=== PATIENT | female | born 1950 | race Caucasian/White ===

== ENCOUNTER 2016-11-01 17:45 | Emergency (ER) | payer BC, MEDICARE ==
[2016-11-01 17:58] VITALS: BP 197/82
--- NOTE | 2016-11-01 18:14 | EDM.PDOC ---
ED HPI GENERAL MEDICAL PROBLEM - General Chief Complaint: Eye Problems Stated Complaint: EYE PAIN Time Seen by Provider: 11/01/16 17:45 Source of Information: Reports: Patient History Limitations: Reports: No Limitations - History of Present Illness INITIAL COMMENTS - FREE TEXT/NARRATIVE: 65 YO WF presents to ER complaining of left eye irritation and redness which began today. Pt denies any eye injury. Pt denies associated matting or discharge from eye. Pt denies any tenderness to the eyelid or visual changes. Onset: Today Duration: Day(s): (1) Quality: Reports: Ache Severity: Mild Improves with: Reports: None Worsens with: Reports: None Associated Symptoms: Reports: No Other Symptoms - Related Data Allergies Allergy/AdvReac Type Severity Reaction Status Date / Time albuterol Allergy Chest Verified 12/01/15 13:27 Tightness amoxicillin [From Augmentin] Allergy Diarrhea Verified 12/01/15 13:27 clarithromycin [From Biaxin] Allergy Diarrhea Verified 12/01/15 13:27 clavulanic acid Allergy Diarrhea Verified 12/01/15 13:27 [From Augmentin] codeine Allergy Hives Verified 12/01/15 13:27 gluten Allergy Abdominal Verified 12/01/15 13:27 Pain levofloxacin [From Levaquin] Allergy Diarrhea Verified 12/01/15 13:27 lincomycin [From Lincocin] Allergy Diarrhea Verified 12/01/15 13:27 nitrofurantoin Allergy Diarrhea Verified 12/01/15 13:27 [From Macrobid] prednisone Allergy Anxiety Verified 11/01/16 17:53 pseudoephedrine Allergy Dizziness Verified 12/01/15 13:27 [From Sudafed] rofecoxib [From Vioxx] Allergy Diarrhea Verified 12/01/15 13:27 sulfamethoxazole Allergy Diarrhea Verified 12/01/15 13:27 [From Bactrim] trimethoprim [From Bactrim] Allergy Diarrhea Verified 12/01/15 13:27 Home Meds: Home Meds Aspirin [Ecotrin] 12/01/15 [History] Atenolol [Tenormin] 12/01/15 [History] Azithromycin [Zithromax] 250 mg PO DAILY #4 tablet MDD 1 12/01/15 [Rx] Benzonatate 12/01/15 [History] Otis Cit/Mag/D3/Zn/Lens Dotter/Zhao/Bor [Citracal-Vit D + Magnesium] 12/01/15 [History] Cetirizine [ZyrTEC] 12/01/15 [History] ClonazePAM [KlonoPIN] 12/01/15 [History] Clotrimazole [Mycelex] 12/01/15 [History] Clotrimazole/Betamethasone Dip [Lotrisone Cream] 12/01/15 [History] Cranberry Extract [Cranberry] 12/01/15 [History] Diclofenac Sodium [Voltaren] 12/01/15 [History] Fluorometholone 12/01/15 [History] Fluticasone Propionate [Flonase] 12/01/15 [History] Gentamicin [Garamycin 0.3% Ophth Soln] 12/01/15 [History] Levalbuterol HCl [Xopenex] 12/01/15 [History] Levalbuterol Tartrate [Xopenex Hfa] 12/01/15 [History] Light Mineral Oil/Min Oil/Pf [Retaine Mgd Eye Drops] 12/01/15 [History] Loteprednol Etabonate [Lotemax] 12/01/15 [History] Metaxalone [Skelaxin] 12/01/15 [History] Mirtazapine [Remeron] 12/01/15 [History] Misoprostol [Cytotec] 12/01/15 [History] Mometasone/Formoterol [Dulera 100-5 MCG] 12/01/15 [History] Montelukast [Singulair] 12/01/15 [History] Multivitamin [Multivitamins] 12/01/15 [History] Nystatin [Nystop] 12/01/15 [History] Nystatin/Triamcinolone Crm [Mycolog Crm] 12/01/15 [History] Omeprazole 12/01/15 [History] PARoxetine HCl [Paxil] 12/01/15 [History] PARoxetine HCl [Paxil] 12/01/15 [History] Phenytoin Sodium Extended [Dilantin] 12/01/15 [History] Ranitidine HCl [Zantac] 12/01/15 [History] Triamcinolone Acetonide [Kenalog] 12/01/15 [History] Vitamin E 12/01/15 [History] cycloSPORINE [Restasis] 12/01/15 [History] Past Medical History Respiratory History: Reports: Asthma, Bronchitis, Recurrent, COPD Gastrointestinal History: Reports: GERD Social & Family History - Tobacco Use Smoking Status *Q: Never Smoker Second Hand Smoke Exposure: No - Caffeine Use Caffeine Use: Reports: Coffee - Recreational Drug Use Recreational Drug Use: No ED ROS GENERAL - Review of Systems Review Of Systems: See Below Constitutional: Reports: No Symptoms HEENT: Reports: Eye Pain Respiratory: Reports: No Symptoms Cardiovascular: Reports: No Symptoms Endocrine: Reports: No Symptoms GI/Abdominal: Reports: No Symptoms : Reports: No Symptoms Musculoskeletal: Reports: No Symptoms Skin: Reports: No Symptoms Neurological: Reports: No Symptoms Psychiatric: Reports: No Symptoms Hematologic/Lymphatic: Reports: No Symptoms Immunologic: Reports: No Symptoms ED EXAM GENERAL W FULL EYE - Physical Exam Exam: See Below Exam Limited By: No Limitations General Appearance: Alert, WD/WN, No Apparent Distress Eye Exam: Right Eye: Normal Inspection, Left Eye: Conjunctival Injection, Bilateral Eye: EOMI, PERRL Eyelids: Bilateral: Normal Appearance Conjunctiva & Sclera: Left: Injected Cornea Exam: Bilateral: Normal Appearance Extraocular Movements: Bilateral: Intact Pupils: Normal Accommodation Head: Atraumatic, Normocephalic Neck: Normal Inspection, Supple, Non-Tender, Full Range of Motion Respiratory/Chest: No Respiratory Distress, Lungs Clear, Normal Breath Sounds, No Accessory Muscle Use, Chest Non-Tender Cardiovascular: Normal Peripheral Pulses, Regular Rate, Rhythm, No Edema, No Gallop, No JVD, No Murmur, No Rub GI/Abdominal: Normal Bowel Sounds, Soft, Non-Tender, No Organomegaly, No Distention, No Abnormal Bruit, No Mass Back Exam: Normal Inspection, Full Range of Motion, NT Extremities: Normal Inspection, Normal Range of Motion, Non-Tender, Normal Capillary Refill, No Pedal Edema Neurological: Alert, Oriented, CN II-XII Intact, Normal Cognition, Normal Gait, Normal Reflexes, No Motor/Sensory Deficits Psychiatric: Normal Affect, Normal Mood Skin Exam: Warm, Dry, Intact, Normal Color, No Rash Lymphatic: No Adenopathy Course - Vital Signs Last Recorded V/S: Last Vital Signs Temp 36.2 C 11/01/16 17:55 Pulse 70 11/01/16 17:55 Resp 22 H 09/24/17 17:55 BP 197/82 H 11/01/16 17:55 Pulse Ox 98 11/01/16 17:55 Departure - Departure Time of Disposition: 18:15 Disposition: Home, Self-Care 01 Condition: Good Clinical Impression: Conjunctivitis Qualifiers: Conjunctivitis type: acute Acute conjunctivitis type: unspecified Laterality: left Qualified Code(s): H10.32 - Unspecified acute conjunctivitis, left eye - Discharge Information Instructions: Bacterial Conjunctivitis, [id number] Referrals: Maryse Cruz PA-C [Primary Care Provider] - Forms: ED Department Discharge - Assessment/Plan Assessment:: 1. left conjunctivitis Plan: 1. discharge home 2. ciloxin opth 3 gtt Q4 x 7 days 3. follow up with opthal for further management
[2016-11-01] MEDS ORDERED: Ciprofloxacin 0.3% Ophth Soln 2.5 ML Bottle EYELF SCH (18:15)
[2016-11-01] MEDS ORDERED: Tobramycin 0.3% Ophth Drops 5 ML Bottle ONE (18:24)
[2016-11-01] MEDS ORDERED: Tobramycin 0.3% Ophth Drops 5 ML Bottle EYELF SCH (21:00)
== END 2016-11-01 18:40 | disposition home or self-care (01) ==
LOC: KA.ED 17:45
DX: H10.32 Unspecified acute conjunctivitis, left eye (principal); J45.909 Unspecified asthma, uncomplicated; K21.9 Gastro-esophageal reflux disease without esophagitis; Z88.1 Allergy status to other antibiotic agents; Z88.5 Allergy status to narcotic agent; Z79.82 Long term (current) use of aspirin; Z88.8 Allergy status to other drugs, medicaments and biological substances; Z79.899 Other long term (current) drug therapy
CPT/HCPCS: 99282; A9270

== ENCOUNTER 2017-04-18 11:31 | Emergency (ER) | payer MEDICARE, OTHER ==
[2017-04-18 12:15] VITALS: BP 134/57
[2017-04-18] MEDS ORDERED: Erythromycin Base 0.5% Ophth Oint 1 GM Tube EYELF ONE (12:19)
--- NOTE | 2017-04-18 12:23 | EDM.PDOC ---
ED HPI GENERAL MEDICAL PROBLEM - General Chief Complaint: Eye Problems Stated Complaint: LEFT EYE IRRITATION Time Seen by Provider: 04/18/17 12:18 Source of Information: Reports: Patient History Limitations: Reports: No Limitations - History of Present Illness INITIAL COMMENTS - FREE TEXT/NARRATIVE: Patient is a 66-year-old female who presents to the emergency department this afternoon with a complaint of left eye irritation. Symptoms began 3 days ago. Patient states that she has a history of ingrown eyelashes and has been taken out by the advertising strategist. She is currently on Restasis for dry eyes. Patient denies trauma, fever, headache, droopy eyelid, vision changes, discharge from eye, or upper respiratory like symptoms. Onset: Gradual Onset Date: 04/16/17 Duration: Day(s): Location: Reports: Other (Left eye) Quality: Reports: Burning Severity: Mild Improves with: Reports: None Worsens with: Reports: Other (Blinking) Context: Reports: Trauma Associated Symptoms: Reports: No Other Symptoms Left Eye Pain Score (Numeric/FACES): 5 - Related Data Allergies Allergy/AdvReac Type Severity Reaction Status Date / Time albuterol Allergy Chest Verified 04/18/17 11:43 Tightness amoxicillin [From Augmentin] Allergy Diarrhea Verified 04/18/17 11:43 clarithromycin [From Biaxin] Allergy Diarrhea Verified 04/18/17 11:43 clavulanic acid Allergy Diarrhea Verified 04/18/17 11:43 [From Augmentin] codeine Allergy Hives Verified 04/18/17 11:43 gluten Allergy Abdominal Verified 04/18/17 11:43 Pain levofloxacin [From Levaquin] Allergy Diarrhea Verified 04/18/17 11:43 lincomycin [From Lincocin] Allergy Diarrhea Verified 04/18/17 11:43 nitrofurantoin Allergy Diarrhea Verified 04/18/17 11:43 [From Macrobid] prednisone Allergy Anxiety Verified 04/18/17 11:43 pseudoephedrine Allergy Dizziness Verified 04/18/17 11:43 [From Sudafed] rofecoxib [From Vioxx] Allergy Diarrhea Verified 04/18/17 11:43 sulfamethoxazole Allergy Diarrhea Verified 04/18/17 11:43 [From Bactrim] trimethoprim [From Bactrim] Allergy Diarrhea Verified 04/18/17 11:43 Home Meds: Home Meds Aspirin [Ecotrin] 12/01/15 [History] Atenolol [Tenormin] 12/01/15 [History] Azithromycin [Zithromax] 250 mg PO DAILY #4 tablet MDD 1 12/01/15 [Rx] Benzonatate 12/01/15 [History] Otis Cit/Mag/D3/Zn/Cosmetic Manager/Zhao/Bor [Citracal-Vit D + Magnesium] 12/01/15 [History] Cetirizine [ZyrTEC] 12/01/15 [History] ClonazePAM [KlonoPIN] 12/01/15 [History] Clotrimazole [Mycelex] 12/01/15 [History] Clotrimazole/Betamethasone Dip [Lotrisone Cream] 12/01/15 [History] Cranberry Extract [Cranberry] 12/01/15 [History] Diclofenac Sodium [Voltaren] 12/01/15 [History] Fluorometholone 12/01/15 [History] Fluticasone Propionate [Flonase] 12/01/15 [History] Gentamicin [Garamycin 0.3% Ophth Soln] 12/01/15 [History] Levalbuterol HCl [Xopenex] 12/01/15 [History] Levalbuterol Tartrate [Xopenex Hfa] 12/01/15 [History] Light Mineral Oil/Min Oil/Pf [Retaine Mgd Eye Drops] 12/01/15 [History] Loteprednol Etabonate [Lotemax] 12/01/15 [History] Metaxalone [Skelaxin] 12/01/15 [History] Mirtazapine [Remeron] 12/01/15 [History] Misoprostol [Cytotec] 12/01/15 [History] Mometasone/Formoterol [Dulera 100-5 MCG] 12/01/15 [History] Montelukast [Singulair] 12/01/15 [History] Multivitamin [Multivitamins] 12/01/15 [History] Nystatin [Nystop] 12/01/15 [History] Nystatin/Triamcinolone Crm [Mycolog Crm] 12/01/15 [History] Omeprazole 12/01/15 [History] PARoxetine HCl [Paxil] 12/01/15 [History] PARoxetine HCl [Paxil] 12/01/15 [History] Phenytoin Sodium Extended [Dilantin] 12/01/15 [History] Ranitidine HCl [Zantac] 12/01/15 [History] Triamcinolone Acetonide [Kenalog] 12/01/15 [History] Vitamin E 12/01/15 [History] cycloSPORINE [Restasis] 12/01/15 [History] Past Medical History HEENT History: Reports: Other (See Below) Other HEENT History: ingrown eyelashes Respiratory History: Reports: Asthma, Bronchitis, Recurrent, COPD Gastrointestinal History: Reports: GERD Social & Family History - Tobacco Use Smoking Status *Q: Never Smoker Second Hand Smoke Exposure: No - Caffeine Use Caffeine Use: Reports: Coffee - Recreational Drug Use Recreational Drug Use: No ED ROS GENERAL - Review of Systems Review Of Systems: ROS reveals no pertinent complaints other than HPI. Constitutional: Reports: No Symptoms HEENT: Reports: Eye Pain Respiratory: Reports: No Symptoms Cardiovascular: Reports: No Symptoms Endocrine: Reports: No Symptoms GI/Abdominal: Reports: No Symptoms : Reports: No Symptoms Musculoskeletal: Reports: No Symptoms Skin: Reports: No Symptoms Neurological: Reports: No Symptoms Psychiatric: Reports: No Symptoms Hematologic/Lymphatic: Reports: No Symptoms Immunologic: Reports: No Symptoms ED EXAM GENERAL W FULL EYE - Physical Exam Exam: See Below Exam Limited By: No Limitations General Appearance: Alert, WD/WN, No Apparent Distress Eye Exam: Left Eye: Other (Sty medial aspect) Eyelids: Bilateral: Normal Appearance Conjunctiva & Sclera: Bilateral: Normal Appearance Extraocular Movements: Bilateral: Intact Nose: Normal Inspection Throat/Mouth: Normal Inspection, Normal Oropharynx, No Airway Compromise Head: Atraumatic, Normocephalic Neck: Normal Inspection. No: Lymphadenopathy (L), Lymphadenopathy (R) Respiratory/Chest: No Respiratory Distress Neurological: Alert, Oriented, Normal Cognition Psychiatric: Normal Affect, Normal Mood Skin Exam: Warm, Dry, Intact, Normal Color, No Rash Lymphatic: No Adenopathy Course - Vital Signs Last Recorded V/S: Last Vital Signs Temp 97.2 F 04/18/17 12:08 Pulse 65 04/18/17 12:08 Resp 18 04/18/17 12:08 BP 134/57 L 04/18/17 12:08 Pulse Ox 95 04/18/17 12:08 - Re-Assessments/Exams Free Text/Narrative Re-Assessment/Exam: 04/18/17 12:25 Patient afebrile, nontoxic appearing, vital signs stable. Ophthalmic ointment was applied to left eye. Patient will follow-up with ophthalmology in one to 2 days. Departure - Departure Time of Disposition: 12:26 Disposition: Home, Self-Care 01 Condition: Good Clinical Impression: Sty, external Qualifiers: Laterality: left Eyelid: lower Qualified Code(s): H00.015 - Hordeolum externum left lower eyelid - Discharge Information Instructions: Stye Referrals: Maryse Cruz PA-C [Primary Care Provider] - Additional Instructions: Follow-up with ophthalmology in one to 2 days. Return to emergency department sooner if symptoms continue or worsen. - Assessment/Plan Assessment:: Left eye sty Plan: Follow-up with ophthalmology
== END 2017-04-18 12:45 | disposition home or self-care (01) ==
LOC: KA.ED 11:31
DX: H00.015 Hordeolum externum left lower eyelid (principal); J44.9 Chronic obstructive pulmonary disease, unspecified; K21.9 Gastro-esophageal reflux disease without esophagitis; Z79.2 Long term (current) use of antibiotics; Z88.1 Allergy status to other antibiotic agents; Z88.2 Allergy status to sulfonamides; Z88.5 Allergy status to narcotic agent; Z88.8 Allergy status to other drugs, medicaments and biological substances; Z91.018 Allergy to other foods
CPT/HCPCS: 99282; 99283

== ENCOUNTER 2021-10-12 09:10 | Emergency (ER) | payer MEDICARE, OTHER ==
[2021-10-12 10:44] VITALS: BP 129/67; PULSE 66
== END 2021-10-12 10:57 | disposition home or self-care (01) ==
LOC: KA.ED 09:10
DX: M79.602 Pain in left arm (principal); K21.9 Gastro-esophageal reflux disease without esophagitis; J44.9 Chronic obstructive pulmonary disease, unspecified; Z88.0 Allergy status to penicillin; Z88.1 Allergy status to other antibiotic agents; Z88.8 Allergy status to other drugs, medicaments and biological substances; Z88.5 Allergy status to narcotic agent; Z91.018 Allergy to other foods; Z79.82 Long term (current) use of aspirin; Z79.899 Other long term (current) drug therapy
CPT/HCPCS: 73030-LT; 73070-LT; 73100-LT; 99283

== ENCOUNTER 2022-12-09 17:05 | Inpatient (IN) | payer MEDICARE, BC ==
[2022-12-09 17:39] LABS: BASOPHILS ABSOLUTE AUTO 0.02 10^3/uL (0.00-0.10); BASOPHILS PERCENT AUTO 0.2 % (0.0-1.0); HEMATOCRIT 34.8 % (37.0-47.0); HEMOGLOBIN 11.2 g/dL (12.0-16.0); IMMATURE GRAN ABSOLUTE AUTO 0.01 10^3/uL (0.00-0.50); IMMATURE GRAN PERCENT AUTO 0.1 % (0.0-5.0); LYMPHOCYTES ABSOLUTE AUTO 1.16 10^3/uL (1.00-4.00); MEAN CORPUSCULAR HEMOGLOBIN 33.3 pg (27.0-31.0); MEAN CORPUSCULAR HGB CONC 32.2 g/dL (32.0-36.0); MEAN CORPUSCULAR VOLUME 103.6 fL (82.0-92.0); MEAN PLATELET VOLUME 9.9 fL (7.4-10.4); MONOCYTES ABSOLUTE AUTO 1.39 10^3/uL (0.10-0.80); MONOCYTES PERCENT AUTO 13.1 % (2.0-8.0); NEUTROPHILS PERCENT AUTO 75.6 % (50.0-70.0); PLATELET COUNT,PLT 313 10^3/uL (150-400); RED BLOOD CELL COUNT 3.36 10^6/uL (3.80-5.50); RED CELL DISTRIBUTION WIDTH 13.5 % (11.5-14.5); WHITE BLOOD CELL COUNT,WBC 10.58 10^3/uL (5.00-10.00)
[2022-12-09 17:50] LABS: INR 1.1 (0.9-1.1)
[2022-12-09 17:53] LABS: ALBUMIN 2.97 g/dL (3.40-5.00); ANION GAP 13.2 mmol/L (5-15); BILIRUBIN TOTAL 0.4 mg/dL (0.2-1.0); CALCIUM 9.1 mg/dL (8.7-10.3); CARBON DIOXIDE,CO2 27.5 mmol/L (21.0-32.0); CREATININE 1.03 mg/dL (0.51-1.17); EST CRCL DRUG DOSING (CG) 37.9 mL/min; POTASSIUM,K 4.7 mmol/L (3.5-5.1); PROTEIN TOTAL,TP 8.4 g/dL (6.4-8.2)
[2022-12-09] MEDS ORDERED: Levalbuterol HCl 1.25 MG/3 ML Neb NEB ONE (18:19)
[2022-12-09] MEDS ORDERED: Acetaminophen 500 MG Tab PO ONE (18:21)
[2022-12-09] MEDS ORDERED: Sodium Chloride 0.9% 1,000 ML IV ONE (18:45)
[2022-12-09] MEDS ORDERED: Ondansetron 4 MG/2 ML SDV IV PRN (21:20)
[2022-12-09] MEDS ORDERED: Ondansetron 4 MG Tab.DIS PO PRN (21:20)
[2022-12-09 21:54] LABS: MAGNESIUM 2.1 mg/dL (1.8-2.4); TSH ULTRASENSITIVE 2.612 uIU/mL (0.340-4.820)
[2022-12-09] MEDS ORDERED: Metoprolol Tartrate 25 MG Tab PO ONE (22:43)
[2022-12-10] MEDS ORDERED: Menthol Lozenge PO PRN (03:36)
[2022-12-10] MEDS: Acetaminophen 325 MG Tab PO PRN ×2 (03:57→20:24)
[2022-12-10] MEDS: Omeprazole 20 MG Cap.CR PO SCH ×2 (06:24→06:33)
[2022-12-10 09:00] LABS: BASOPHILS ABSOLUTE AUTO 0.03 10^3/uL (0.00-0.10); BASOPHILS PERCENT AUTO 0.3 % (0.0-1.0); HEMATOCRIT 31.9 % (37.0-47.0); HEMOGLOBIN 10.4 g/dL (12.0-16.0); IMMATURE GRAN ABSOLUTE AUTO 0.01 10^3/uL (0.00-0.50); IMMATURE GRAN PERCENT AUTO 0.1 % (0.0-5.0); LYMPHOCYTES ABSOLUTE AUTO 1.04 10^3/uL (1.00-4.00); LYMPHOCYTES PERCENT AUTO 11.8 % (20.0-40.0); MEAN CORPUSCULAR HEMOGLOBIN 33.3 pg (27.0-31.0); MEAN CORPUSCULAR HGB CONC 32.6 g/dL (32.0-36.0); MEAN CORPUSCULAR VOLUME 102.2 fL (82.0-92.0); MEAN PLATELET VOLUME 10.3 fL (7.4-10.4); MONOCYTES ABSOLUTE AUTO 1.11 10^3/uL (0.10-0.80); MONOCYTES PERCENT AUTO 12.6 % (2.0-8.0); NEUTROPHILS ABSOLUTE AUTO 6.63 10^3/uL (2.50-7.00); NEUTROPHILS PERCENT AUTO 75.2 % (50.0-70.0); PLATELET COUNT,PLT 301 10^3/uL (150-400); RED BLOOD CELL COUNT 3.12 10^6/uL (3.80-5.50); RED CELL DISTRIBUTION WIDTH 13.6 % (11.5-14.5); WHITE BLOOD CELL COUNT,WBC 8.82 10^3/uL (5.00-10.00)
[2022-12-10] MEDS ORDERED: Metoprolol Tartrate 25 MG Tab PO SCH (09:00)
[2022-12-10] MEDS: Rosuvastatin 10 MG Tab PO SCH (09:12)
[2022-12-10] MEDS: PARoxetine 20 MG Tab PO SCH (09:12)
[2022-12-10] MEDS: Phenytoin 100 MG Cap.ER PO SCH ×2 (09:12→20:23)
[2022-12-10] MEDS: Apixaban 5 MG Tab PO SCH ×2 (09:12→20:23)
[2022-12-10 09:21] LABS: HEMOGLOBIN A1C 5.4 % (4.3-5.7)
[2022-12-10] MEDS: Folic Acid 1 MG Tab PO SCH (09:53)
[2022-12-10] MEDS: ClonazePAM 0.5 MG Tab PO SCH ×3 (12:16→23:10)
[2022-12-10] MEDS: Multivitamins with Minerals/Iron/Folic Acid/Lycopene Tab PO SCH (12:16)
[2022-12-10] MEDS ORDERED: Sodium Chloride 0.9% 100 ML IV SCH (14:00)
[2022-12-10] MEDS: Iopamidol 755 Mg/ML 100 ML Bottle IV ONE ×2 (14:30→15:40)
[2022-12-10] MEDS: LIDOCAINE TOP PRN (14:46)
[2022-12-10] MEDS: ASPERCREME TOP PRN (14:46)
[2022-12-10] MEDS: Gabapentin 100 MG Cap PO SCH ×2 (14:51→20:23)
[2022-12-10] MEDS: Metoprolol Tartrate 50 MG Tab PO SCH ×2 (15:14→20:25)
[2022-12-10] MEDS: traZODone 50 MG Tab PO PRN (20:23)
[2022-12-11] MEDS: Omeprazole 20 MG Cap.CR PO SCH ×2 (06:08→07:06)
[2022-12-11 08:20] LABS: BASOPHILS ABSOLUTE AUTO 0.02 10^3/uL (0.00-0.10); BASOPHILS PERCENT AUTO 0.2 % (0.0-1.0); HEMOGLOBIN 10.4 g/dL (12.0-16.0); IMMATURE GRAN ABSOLUTE AUTO 0.02 10^3/uL (0.00-0.50); IMMATURE GRAN PERCENT AUTO 0.2 % (0.0-5.0); LYMPHOCYTES ABSOLUTE AUTO 0.82 10^3/uL (1.00-4.00); LYMPHOCYTES PERCENT AUTO 7.6 % (20.0-40.0); MEAN CORPUSCULAR HEMOGLOBIN 32.7 pg (27.0-31.0); MEAN CORPUSCULAR HGB CONC 32.5 g/dL (32.0-36.0); MEAN CORPUSCULAR VOLUME 100.6 fL (82.0-92.0); MEAN PLATELET VOLUME 9.1 fL (7.4-10.4); MONOCYTES PERCENT AUTO 14.8 % (2.0-8.0); NEUTROPHILS ABSOLUTE AUTO 8.32 10^3/uL (2.50-7.00); NEUTROPHILS PERCENT AUTO 77.2 % (50.0-70.0); PLATELET COUNT,PLT 291 10^3/uL (150-400); RED BLOOD CELL COUNT 3.18 10^6/uL (3.80-5.50); RED CELL DISTRIBUTION WIDTH 13.6 % (11.5-14.5); WHITE BLOOD CELL COUNT,WBC 10.78 10^3/uL (5.00-10.00)
[2022-12-11 08:39] LABS: CARBON DIOXIDE,CO2 24.8 mmol/L (21.0-32.0); CREATININE 0.72 mg/dL (0.51-1.17); EST CRCL DRUG DOSING (CG) 54.22 mL/min; MAGNESIUM 1.8 mg/dL (1.8-2.4)
[2022-12-11 09:13] LABS: ANION GAP 13.3 mmol/L (5-15); POTASSIUM,K 4.1 mmol/L (3.5-4.5)
[2022-12-11] MEDS: Phenytoin 100 MG Cap.ER PO SCH ×2 (09:50→22:05)
[2022-12-11] MEDS: Folic Acid 1 MG Tab PO SCH (09:50)
[2022-12-11] MEDS: Apixaban 5 MG Tab PO SCH ×2 (09:50→22:05)
[2022-12-11] MEDS: PARoxetine 20 MG Tab PO SCH (09:50)
[2022-12-11] MEDS: Metoprolol Tartrate 50 MG Tab PO SCH ×2 (09:50→22:04)
[2022-12-11] MEDS: Diltiazem 120 MG Cap.CD PO SCH (09:50)
[2022-12-11] MEDS: Gabapentin 100 MG Cap PO SCH ×3 (09:50→22:04)
[2022-12-11] MEDS: Rosuvastatin 10 MG Tab PO SCH (09:50)
[2022-12-11] MEDS: LIDOCAINE TOP PRN ×2 (10:04→22:10)
[2022-12-11] MEDS: ASPERCREME TOP PRN ×2 (10:04→22:10)
[2022-12-11 10:30] LABS: APPEARANCE,URINE SLIGHTLY CLOUDY (CLEAR); COLOR,URINE DARK YELLOW (YELLOW)
[2022-12-11 10:31] LABS: BILIRUBIN,URINE MODERATE (NEGATIVE); GLUCOSE,URINE NEGATIVE (NEGATIVE); KETONES,URINE 15 mg/dL (NEGATIVE); LEUKOCYTE ESTERASE,URINE NEGATIVE (NEGATIVE); NITRITE,URINE NEGATIVE (NEGATIVE); OCCULT BLOOD,URINE TRACE-INTACT (NEGATIVE); PH,URINE 5.5 (5.0-9.0); PROTEIN,URINE >=300 mg/dL (NEGATIVE); UROBILINOGEN,URINE 0.2 E.U./dL (0.2-1.0)
[2022-12-11 10:32] LABS: BACTERIA,URINE FEW /HPF (NONE TO FEW); EPITHELIAL CELLS,URINE FEW /LPF; MUCUS,URINE FEW /LPF (NEGATIVE); WBC,URINE 0-5 /HPF (0-5)
[2022-12-11] MEDS: ClonazePAM 0.5 MG Tab PO SCH ×5 (10:48→22:04)
[2022-12-11] MEDS: Multivitamins with Minerals/Iron/Folic Acid/Lycopene Tab PO SCH (11:49)
[2022-12-11] MEDS: Acetaminophen 325 MG Tab PO PRN ×2 (12:47→22:05)
[2022-12-11] MEDS ORDERED: LORazepam 2 MG/ML SDV IVPUSH ONE (13:17)
[2022-12-11] MEDS ORDERED: Iopamidol 755 Mg/ML 100 ML Bottle IV ONE (14:44)
[2022-12-11] MEDS ORDERED: Sodium Chloride 0.9% 100 ML IV SCH (14:45)
[2022-12-11] MEDS: LORazepam 2 MG/ML SDV IVPUSH PRN (19:52)
[2022-12-11] MEDS: traZODone 50 MG Tab PO PRN (23:06)
[2022-12-12] MEDS: LORazepam 2 MG/ML SDV IVPUSH PRN (04:58)
[2022-12-12] MEDS: Acetaminophen 325 MG Tab PO PRN (04:58)
[2022-12-12] MEDS: Omeprazole 20 MG Cap.CR PO SCH (07:29)
[2022-12-12] MEDS ORDERED: METAXALONE 800 MG PO SCH (09:00)
[2022-12-12] MEDS ORDERED: Lidocaine 5% 700 MG Patch TRDERM SCH (09:00)
[2022-12-12] MEDS ORDERED: Cetirizine 10 MG Tab PO SCH (09:00)
[2022-12-12 09:51] LABS: BASOPHILS ABSOLUTE AUTO 0.03 10^3/uL (0.00-0.10); BASOPHILS PERCENT AUTO 0.3 % (0.0-1.0); HEMATOCRIT 32.8 % (37.0-47.0); HEMOGLOBIN 10.7 g/dL (12.0-16.0); IMMATURE GRAN ABSOLUTE AUTO 0.02 10^3/uL (0.00-0.50); IMMATURE GRAN PERCENT AUTO 0.2 % (0.0-5.0); LYMPHOCYTES PERCENT AUTO 11.5 % (20.0-40.0); MEAN CORPUSCULAR HEMOGLOBIN 32.8 pg (27.0-31.0); MEAN CORPUSCULAR HGB CONC 32.6 g/dL (32.0-36.0); MEAN CORPUSCULAR VOLUME 100.6 fL (82.0-92.0); MEAN PLATELET VOLUME 9.9 fL (7.4-10.4); MONOCYTES ABSOLUTE AUTO 1.71 10^3/uL (0.10-0.80); MONOCYTES PERCENT AUTO 16.3 % (2.0-8.0); NEUTROPHILS PERCENT AUTO 71.7 % (50.0-70.0); PLATELET COUNT,PLT 287 10^3/uL (150-400); RED BLOOD CELL COUNT 3.26 10^6/uL (3.80-5.50); RED CELL DISTRIBUTION WIDTH 13.5 % (11.5-14.5); WHITE BLOOD CELL COUNT,WBC 10.46 10^3/uL (5.00-10.00)
[2022-12-12] MEDS: Diltiazem 120 MG Cap.CD PO SCH (09:54)
[2022-12-12] MEDS: Metoprolol Tartrate 50 MG Tab PO SCH (09:55)
[2022-12-12] MEDS: PARoxetine 20 MG Tab PO SCH (09:56)
[2022-12-12] MEDS: Gabapentin 100 MG Cap PO SCH ×2 (09:56→13:47)
[2022-12-12] MEDS: Apixaban 5 MG Tab PO SCH (09:56)
[2022-12-12] MEDS: Folic Acid 1 MG Tab PO SCH (09:56)
[2022-12-12] MEDS: Phenytoin 100 MG Cap.ER PO SCH (09:56)
[2022-12-12] MEDS: Rosuvastatin 10 MG Tab PO SCH (09:56)
[2022-12-12] MEDS ORDERED: Metoprolol Tartrate 25 MG Tab PO ONE (10:21)
[2022-12-12 10:30] LABS: ALBUMIN 2.35 g/dL (3.40-5.00); ANION GAP 13.2 mmol/L (5-15); BILIRUBIN TOTAL 0.3 mg/dL (0.2-1.0); CARBON DIOXIDE,CO2 27.6 mmol/L (21.0-32.0); CREATININE 0.78 mg/dL (0.51-1.17); EST CRCL DRUG DOSING (CG) 50.05 mL/min; POTASSIUM,K 3.8 mmol/L (3.5-5.1); PROTEIN TOTAL,TP 8.2 g/dL (6.4-8.2)
[2022-12-12] MEDS ORDERED: cefTRIAXone 2 GM Vial IVPUSH SCH (10:30)
[2022-12-12] MEDS ORDERED: Vancomycin 2 GM in Sodium Chloride 0.9% 500 ML IV ONE (11:00)
[2022-12-12 11:05] LABS: C-REACTIVE PROTEIN 67.2 mg/dL (0.0-0.9)
[2022-12-12] MEDS: ClonazePAM 0.5 MG Tab PO SCH (11:45)
[2022-12-12] MEDS: QUEtiapine 25 MG Tab PO SCH ×2 (11:45→13:47)
[2022-12-12] MEDS: Multivitamins with Minerals/Iron/Folic Acid/Lycopene Tab PO SCH (11:45)
[2022-12-12 13:43] VITALS: BP 124/67; PULSE 103
[2022-12-12] MEDS ORDERED: Metoprolol Tartrate 50 MG Tab PO SCH (21:00)
[2022-12-12] MEDS ORDERED: Mirtazapine 15 MG Tab PO SCH (21:00)
== END 2022-12-12 14:25 | DRG 309 ==
LOC: SUPCPDRO 17:05 → KA.ED 17:05 → KA.MS 20:11 → UNDOADMOB 20:35 → KA.MS 20:35 → OBSVTOIN 12-11 23:45
PROVIDERS: ADMIT Family Medicine; ATTEND Family Medicine
DX: I48.91 Unspecified atrial fibrillation (principal); Z68.41 Body mass index [BMI] 40.0-44.9, adult; R09.02 Hypoxemia; E86.0 Dehydration; I11.0 Hypertensive heart disease with heart failure; I50.9 Heart failure, unspecified; J44.9 Chronic obstructive pulmonary disease, unspecified; M19.90 Unspecified osteoarthritis, unspecified site; F41.9 Anxiety disorder, unspecified; F32.A Depression, unspecified; M54.50 Low back pain, unspecified; G89.29 Other chronic pain; R41.82 Altered mental status, unspecified; G40.909 Epilepsy, unspecified, not intractable, without status epilepticus; D53.9 Nutritional anemia, unspecified; E66.01 Morbid (severe) obesity due to excess calories; R53.1 Weakness; Z88.8 Allergy status to other drugs, medicaments and biological substances; Z88.5 Allergy status to narcotic agent; Z88.1 Allergy status to other antibiotic agents; E78.00 Pure hypercholesterolemia, unspecified; K21.9 Gastro-esophageal reflux disease without esophagitis; Z79.82 Long term (current) use of aspirin; Z79.899 Other long term (current) drug therapy
CPT/HCPCS: 36415; 36416; 51702; 70450; 71045; 71275; 72100; 80048; 80053; 80061; 80185; 81001; 82140; 82607; 82746; 83036; 83605; 83735; 83880; 84443; 84484; 85025; 85379; 85610; 86140; 87040; 93005; 93010; 96361; 96374; 96376; 99284; 99285; A9270-GY; C1758; G0378; J0696; J2060; J3370; J3490; J7030; J7040; J7612-GY; Q3014; Q9967

== ENCOUNTER 2023-10-14 11:07 | Emergency (ER) | payer MEDICARE, BC ==
[2023-10-14 11:15] VITALS: BP 113/59; PULSE 82
== END 2023-10-14 13:00 ==
LOC: KA.ED 11:07
DX: S00.11XA Contusion of right eyelid and periocular area, initial encounter (principal); I11.0 Hypertensive heart disease with heart failure; I50.9 Heart failure, unspecified; E78.00 Pure hypercholesterolemia, unspecified; I48.91 Unspecified atrial fibrillation; J44.9 Chronic obstructive pulmonary disease, unspecified; K21.9 Gastro-esophageal reflux disease without esophagitis; Z79.899 Other long term (current) drug therapy; Z88.1 Allergy status to other antibiotic agents; Z91.018 Allergy to other foods; Z88.8 Allergy status to other drugs, medicaments and biological substances; Z88.2 Allergy status to sulfonamides; W01.0XXA Fall on same level from slipping, tripping and stumbling without subsequent striking against object, initial encounter
CPT/HCPCS: 70450; 99283; 99284